=== PATIENT | male | born 2000 | race Caucasian/White ===

== ENCOUNTER → 2020-06-12 10:19 | Outpatient (BNVA) | payer OTHER, SELFPAY | PROVIDERS: Family Provider Family Medicine; Visit Provider Nurse Practitioner Family | DX: J02.9 Acute pharyngitis, unspecified (principal) | CPT/HCPCS: 87880 ==

== ENCOUNTER → 2020-10-16 11:28 | Outpatient (BNVA) | payer OTHER, SELFPAY | PROVIDERS: Family Provider Family Medicine; PCP Family Medicine; Visit Provider Registered Nurse Neonatal Intensive Care | DX: J02.9 Acute pharyngitis, unspecified (principal) | CPT/HCPCS: 87880 ==

== ENCOUNTER 2021-07-02 08:18 | Outpatient (CLI) | payer OTHER, SELFPAY ==
--- NOTE | 2021-07-02 | US_ITS ---
WS: [id number] ULTRASOUND RENAL TECHNIQUE: Ultrasound examination of both kidneys. CLINICAL INFORMATION: ELEVATED CREATNINE COMPARISON: None. FINDINGS: RIGHT: Right kidney is normal in size and appearance. Echogenicity: Normal. Cortical thickness: 0.8 cm; Normal. Hydronephrosis: None. Perinephric fluid: None. Right kidney measures: 9.8 cm x 4.3 cm x 4.4 cm. LEFT: Left kidney is normal in size and appearance. Echogenicity: Normal. Cortical thickness: 1.3 cm; Normal. Hydronephrosis: None. Perinephric fluid: None. Left kidney measures: 11.1 cm x 4.3 cm x cm. Normal visualized aorta. Normal bladder. US/US renal BI* [id number] IMPRESSION: 1. Normal renal ultrasound
--- NOTE | 2021-07-02 08:22 | US_ITS ---
WS: [id number] ULTRASOUND RENAL TECHNIQUE: Ultrasound examination of both kidneys. CLINICAL INFORMATION: ELEVATED CREATNINE COMPARISON: None. FINDINGS: RIGHT: Right kidney is normal in size and appearance. Echogenicity: Normal. Cortical thickness: 0.8 cm; Normal. Hydronephrosis: None. Perinephric fluid: None. Right kidney measures: 9.8 cm x 4.3 cm x 4.4 cm. LEFT: Left kidney is normal in size and appearance. Echogenicity: Normal. Cortical thickness: 1.3 cm; Normal. Hydronephrosis: None. Perinephric fluid: None. Left kidney measures: 11.1 cm x 4.3 cm x cm. Normal visualized aorta. Normal bladder.
== END 2021-07-02 08:19 | disposition home or self-care (01) ==
LOC: RAD 08:19
PROVIDERS: Family Provider Family Medicine; PCP Family Medicine; Visit Provider Family Medicine
DX: R94.4 Abnormal results of kidney function studies (principal); R03.0 Elevated blood-pressure reading, without diagnosis of hypertension
CPT/HCPCS: 76770; 76857

== ENCOUNTER 2023-05-22 06:24 | Outpatient (CLI) | payer OTHER, SELFPAY ==
--- NOTE | 2023-05-22 07:18 | MR_ITS ---
WS: [id number] MRI RIGHT SHOULDER NONCONTRAST TECHNIQUE: Sagittal T2, coronal T1, T2 and proton density imaging. Axial gradient PDE imaging. CLINICAL INFORMATION: R SHOULDER PAIN COMPARISON: None. FINDINGS: Mild degenerative changes AC joint with a small amount of subacromial and subdeltoid fluid. Slight ny bacromial spurring. Slight impingement distal supraspinatus. Mild tendinopathy distal supraspinatus w ith a tiny insertional tear. Otherwise normal supraspinatus and infraspinatus. Normal teres minor. No rmal subscapularis tendon. Normal biceps tendon in the bicipital groove. Glenoid labrum appears grossly normal. Normal bone katie ow signal in the humerus and glenoid. Normal soft tissues. No other suspicious findings. IMPRESSION: 1. Minimal degenerative changes AC joint with a small amount of subacromial and subdeltoid fluid. S light subacromial spurring. Slight impingement distal supraspinatus 2. Mild tendinopathy distal supraspinatus with a tiny insertional tear. 3. Normal biceps in the bicipital groove. 4. Normal bone marrow signal. 5. No other suspicious findings.
== END 2023-05-22 06:25 | disposition home or self-care (01) ==
LOC: RAD 06:24
PROVIDERS: PCP Family Medicine; Visit Provider Family Medicine
DX: M25.411 Effusion, right shoulder (principal); M25.511 Pain in right shoulder
CPT/HCPCS: 73221

== ENCOUNTER → 2024-05-09 18:55 | Outpatient (BNVA) | payer OTHER, SELFPAY | PROVIDERS: PCP Family Medicine; Visit Provider Family Medicine | DX: J02.9 Acute pharyngitis, unspecified (principal) | CPT/HCPCS: 87880 ==